=== PATIENT | male | born 1965 | race Caucasian/White ===

== ENCOUNTER 2018-01-13 06:56 | Emergency (ER) | END 2018-01-13 08:15 | disposition home or self-care (01) ==

== ENCOUNTER 2018-09-25 07:30 | Emergency (ER) | payer MEDICAID ==
[~2018-09-25] VITALS: Ht 167.6 cm; Wt 114.4 kg
[~2018-09-25 07:30] MED LIST: CYCL10TA7 PO; NAPR-985 PO; POLY10DR19 LEFT EYE; TRAM50TA2 PO
[2018-09-25 07:35] VITALS: BP 139/66; PULSE 70; RESP 18; Ht 167.6 cm; Wt 114.4 kg
[2018-09-25] MEDS ORDERED: KETOROLAC 60 MG INJ IM STA (08:06)
--- NOTE | 2018-09-25 09:55 | ERD ---
ER Documentation Chief Complaint Chief Complaint MID BACK PAIN X3 MONTHS, NO INJURY HPI 52-year-old male presenting with right-sided flank back pain. States is been going for the last 3 months and his pain is worse with rotational movements. He works in construction. He denies any recent falls or injuries and he has taken ibuprofen with alleviation of symptoms. Patient states that his pain is worse with movement and he does not have pain with walking. He denies any changes in urination or bowel movement denies any abdominal pain. Medical history denies. NKDA. Surgical history denies. Social history denies ROS All systems reviewed and are negative except as per history of present illness. Medications Home Meds Active Scripts Cyclobenzaprine Hcl* (Cyclobenzaprine Hcl*) 10 Mg Tablet, 10 MG PO TID, #15 TAB Prov:FLORES SHANE PA-C 09/25/18 Naproxen* (Naprosyn*) 500 Mg Tablet, 500 MG PO BID PRN for PAIN AND/OR INFLAMMATION, #30 TAB Prov:FLORES SHANE PA-C 09/25/18 Tramadol HCl (Tramadol HCl) 50 Mg Tablet, 50 MG PO Q4 PRN for PAIN, #20 TAB Prov:FLORES SHANE PA-C 09/25/18 Polymyxin B Sulfate-TMP* (Polymyxin B-TMP Eye Drops*) 10 Ml Drops, 1 DROP LEFT EYE BID for 5 Days, #1 BOTTLE Prov:TONO VILLALOBOS DO 01/13/18 Allergies Allergies: Coded Allergies: No Known Allergy (Unverified , 09/25/18) PMhx/Soc Medical and Surgical Hx: pt denies Medical Hx, pt denies Surgical Hx History of Surgery: No Anesthesia Reaction: No Hx Neurological Disorder: No Hx Respiratory Disorders: No Hx Cardiac Disorders: No Hx Psychiatric Problems: No Hx Miscellaneous Medical Probl: No Hx Alcohol Use: No Hx Substance Use: No Hx Tobacco Use: No Smoking Status: Never smoker FmHx Family History: No diabetes, No coronary disease, No other Physical Exam Vitals Vital Signs Date Temp Pulse Resp B/P (MAP) Pulse Ox O2 O2 Flow FiO2 Time Delivery Rate 09/25/18 98.2 70 18 139/66 98 07:35 (90) Physical Exam GENERAL: The patient is well-appearing, well-nourished, in no acute distress HEENT: Atraumatic. Conjunctivae are pink. Pupils equal, round, and reactive to light. There is no scleral icterus. Tympanic membranes clear bilaterally. Oropharynx clear. CHEST: Clear to auscultation bilaterally. There are no rales, wheezes or rhonchi. HEART: Regular rate and rhythm. No murmurs, clicks, rubs or gallops. BACK: No midline or flank tenderness. EXTREMITIES: Equal pulses bilaterally. There is no peripheral clubbing, cyanosis or edema. No focal swelling or erythema. Full range of motion. NEUROLOGIC: Alert and oriented. Cranial nerves II through XII intact. Motor strength in all 4 extremities with 5 out of 5 strength. Sensation grossly intact. Normal speech and gait. SKIN: There is no apparent rash or petechiae. The skin is warm and dry. Results 24 hrs Current Medications Medications Dose Sig/Cheyanne Start Time Status Last (Trade) Ordered Route PRN Stop Time Admin Dose Reason Admin Ketorolac 60 mg ONCE STAT 09/25/18 DC 09/25/18 Tromethamine IM 08:06 08:13 (Toradol) 09/25/18 08:08 Procedures/MDM DIAGNOSTIC IMAGING REPORT Patient: TARAH GARAY : 1965 Age: 52 Sex: M MR #: [id number] DOS: 09/25/18805 Ordering MD: ANTONIO SHANE PA-C Location: [facility] Room/Bed: PROCEDURE: XR ribs CLINICAL INDICATION: Pain TECHNIQUE: AP and multiple oblique views of the right ribs obtained. COMPARISON: None FINDINGS: Lungs are clear. No pleural fluid collections or evidence of a pneumothorax. Cardiac silhouette and mediastinal contours are unremarkable. No fractures are identified. No destructive lesions. Bone mineralization appears normal. Soft tissues are unremarkable. IMPRESSION: Negative for fracture. No acute findings. DIAGNOSTIC IMAGING REPORT Patient: TARAH GARAY : 1965 Age: 52 Sex: M MR #: [id number] DOS: 09/25/18 08 Ordering MD: ANTONIO SHANE PA-C Location: [facility] Room/Bed: PROCEDURE: Thoracic Spine. CLINICAL INDICATION: Back Pain TECHNIQUE: AP and lateral views of the thoracic spine are available for review COMPARISON: None available FINDINGS: The upper thoracic spine is not well visualized on the lateral view. The normal thoracic kyphosis is present. Alignment is intact and normal. The vertebral body heights are preserved. No fracture or dislocation is seen. There are multilevel mild degenerative changes of thoracic spine with decreased disk spaces and osteophytosis. No radiopaque foreign body is identified. The paraspinous soft tissues are unremarkable. IMPRESSION: 1. No acute thoracic spine fracture or subluxation. 2. Multilevel mild thoracic discogenic disease. MDM: 52-year-old male presenting with back pain. Patient x-rays are within normal limits. Patient's pain is worse with rotational movements I believe he has symptoms associated muscular skeletal strain. I have low suspicion for acute fracture dislocation I have low suspicion for cardiac or pulmonary emergency. I have considered nephrolithiasis versus septic stone however have low suspicion. Patient is discharged with strict ER precautions and told to follow-up with primary care within 1 to 2 days for close evaluation. Patient is told symptoms change or worsen to return immediately to the ER. All questions answered at discharge Departure Diagnosis: Primary Impression: Back pain Condition: Stable Patient Instructions: Back Pain (Acute Or Chronic) Referrals: [facility] YOU HAVE RECEIVED A MEDICAL SCREENING EXAM AND THE RESULTS INDICATE THAT YOU DO NOT HAVE A CONDITION THAT REQUIRES URGENT TREATMENT IN THE EMERGENCY DEPARTMENT. FURTHER EVALUATION AND TREATMENT OF YOUR CONDITION CAN WAIT UNTIL YOU ARE SEEN IN YOUR DOCTORS OFFICE WITHIN THE NEXT 1-2 DAYS. IT IS YOUR RESPONSIBILITY TO MAKE AN APPOINTMENT FOR FOLOW-UP CARE. IF YOU HAVE A PRIMARY DOCTOR --you should call your primary doctor and schedule an appointment IF YOU DO NOT HAVE A PRIMARY DOCTOR YOU CAN CALL OUR PHYSICIAN REFERRAL HOTLINE AT IF YOU CAN NOT AFFORD TO SEE A PHYSICIAN YOU CAN CHOSE FROM THE FOLLOWING ON LICENSE OF [facility] [address] [facility] [address] [facility] [address] [facility] [address] [facility] [address] [place] [address]. [facility]. [address] Additional Instructions: FOLLOW UP WITH YOUR PRIMARY CARE PHYSICIAN TOMORROW.Return to this facility if you are not improving as expected. FLORES SHANE PA-C Sep 25, 2018 09:55
== END 2018-09-25 09:23 | disposition home or self-care (01) ==
LOC: FTE 07:30
DX: M54.9 Dorsalgia, unspecified (principal)
CPT/HCPCS: 71100; 72072; 96372; J1885; Z7502